=== PATIENT | female | born 1985 | race African-American/Black ===

== ENCOUNTER 2021-01-22 01:17 | Emergency (ER) | payer MEDICAID ==
[~2021-01-22] VITALS: Ht 167.6 cm; Wt 82.0 kg
[2021-01-22] MEDS ORDERED: IBUPROFEN 400MG TABLET PO ONE (02:30)
[2021-01-22 02:34] VITALS: BP 134/75
[2021-01-22 02:38] LABS: BASOPHILS % 0.6 % (0.0-2.0); HEMATOCRIT. 39.3 % (36.0-48.0); HEMOGLOBIN. 13.3 g/dL (12.0-16.0); LYMPHOCYTES % 20.2 % (20.0-50.0); MEAN CORPUSCULAR HEMOGLOBIN 28.1 pg (28.0-32.0); MEAN CORPUSCULAR VOLUME 83.4 fL (81.0-99.0); MEAN PLATELET VOLUME 8.1 fl (7.4-10.4); MONOCYTES % 8.2 % (2.0-8.0); PLATELET 365 x1000/uL (130-400); RED BLOOD CELL COUNT 4.72 mill/uL (4.2-5.4); RED CELL DISTRIBUTION WIDTH 13.1 % (11.6-14.6)
[2021-01-22 02:41] LABS: CHLORIDE 103 mEq/L (98-107)
[2021-01-22 02:49] LABS: HCG SCREEN NEGATIVE
[2021-01-22] MEDS ORDERED: IBUP-2028 MT (03:05)
== END 2021-01-22 03:35 | disposition home or self-care (01) ==
LOC: ER 01:39
DX: U07.1 COVID-19 (principal); B34.9 Viral infection, unspecified; R07.9 Chest pain, unspecified
CPT/HCPCS: 36415; 71045; 80053; 84703; 85025; 93005; 99285; C9803; U0003; U0005